=== PATIENT | female | born 1945 | race Caucasian/White ===

== ENCOUNTER → 2021-07-08 | Outpatient (CLI) | payer MEDICARE ==
[~2021-07-08] MED LIST: DITROPAN 5 MG TA5 MG PO; FEOSOL325 MG PO; GABAPENTIN400 MG PO; MAGNESIUM500 MG PO; NORCO 10-325 T1 EACH PO; PLAVIX 75 MG TA75 MG PO; POTASSIUM99 MG PO; PROTONIX40 MG PO; SINGULAIR10 MG PO; TOPROL XL50 MG PO; VITAMIN D250000 UNIT PO; XANAX 0.25 MG0.25 MG PO; ZOFRAN4 MG PO
== END ==
LOC: HEART 5 14:41
DX: J44.9 Chronic obstructive pulmonary disease, unspecified (principal)
CPT/HCPCS: 94010; 94729

== ENCOUNTER → 2021-07-16 | Outpatient (CLI) | payer MEDICARE | LOC: KOH-I 08:51 | DX: R91.1 Solitary pulmonary nodule (principal); J43.9 Emphysema, unspecified | CPT/HCPCS: 71250 ==